=== PATIENT | female | born 1985 | race Caucasian/White ===

== ENCOUNTER 2018-05-03 00:16 | Emergency (ER) | payer MEDICAID ==
[~2018-05-03] VITALS: Ht 162.6 cm; Wt 54.5 kg
[2018-05-03 00:16] VITALS: BP 139/98
== END 2018-05-03 01:42 | disposition home or self-care (01) ==
LOC: ED 01:36
DX: T19.2XXA Foreign body in vulva and vagina, initial encounter (principal); F17.200 Nicotine dependence, unspecified, uncomplicated; X58.XXXA Exposure to other specified factors, initial encounter; Y93.89 Activity, other specified; Y92.89 Other specified places as the place of occurrence of the external cause; Y99.8 Other external cause status
CPT/HCPCS: 99283

== ENCOUNTER 2020-05-14 23:24 | Emergency (ER) | payer MEDICAID, OTHER ==
[~2020-05-14] VITALS: Ht 162.6 cm; Wt 54.5 kg
[2020-05-14 23:26] VITALS: BP 124/77
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
--- NOTE | 2020-05-15 | NUR ---
AT BEDSIDE FOR ASSESSMENT
== END 2020-05-15 01:37 | disposition home or self-care (01) ==
LOC: ED 05-15 00:09
DX: T19.2XXA Foreign body in vulva and vagina, initial encounter (principal); F17.200 Nicotine dependence, unspecified, uncomplicated
CPT/HCPCS: 72170; 99283